=== PATIENT | female | born 1950 | race Caucasian/White ===

== ENCOUNTER 2018-09-28 10:52 | Inpatient (IN) ==
[2018-09-28] MEDS ORDERED: CeFAZolin Syr 2,000MG/20 ML 2,000 MG/20 ML SYRINGE IVPB ONE (11:19)
[2018-09-28] MEDS ORDERED: Ringers Solution, Lactated 1,000 ML IVC SCH (11:30)
--- NOTE | 2018-09-28 12:12 | History & Physical Report ---
Date of Encounter: 09/28/18 Time of Encounter: 12:00 24 Hour HP Update - Instructions Instructions: If the History and Physical is less than 30 days old and was completed prior to A.M. admission and or procedure and has NOT been updated on calendar day of procedure please complete this update prior to performing procedure. - Update Patient reports changes in Medical Condition: No Changes in examination, assessment, or condition: No Changes in Medication: No Preop tests/diagnostics Reviewed: Yes Surgery Remains Indicated: Yes Consent for Planned Operative Procedure(s) Verified: Yes - Pre-Operative Checklist Preoperative Checklist Indicated: Yes Prophylactic Antibiotic Ordered: Yes Home Medications Include Beta Raimundo: No Is VTE Prophylaxis Indicated?: Yes
--- NOTE | 2018-09-28 12:18 | Anesthesia Evaluation PreOp ---
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 Any Significant HX Other Medical History: Diabetes Type II, GERD, Other (depression) Anesthesia History: No Prior Anesthetic Complications, Past Anesthesia Alcohol Use: none Drug use: none Medications and Allergies Atorvastatin Calcium [Lipitor] 80 mg PO HS 08/23/18 [History] Gabapentin [Neurontin] 400 mg PO DAILY 08/23/18 [History] GlipiZIDE XL (24 HR) [Glucotrol XL] 5 mg PO DAILY 08/23/18 [History] Loratadine [Allergy Relief] 10 mg PO DAILY 08/23/18 [History] Metformin HCl [Glucophage Xr] 500 mg PO DAILY 08/23/18 [History] Omeprazole [PriLOSEC] 40 mg PO DAILY 08/23/18 [History] Ranitidine HCl [Zantac] 300 mg PO DAILY 08/23/18 [History] Venlafaxine XR (24 HR) [Effexor XR] 37.5 mg PO DAILY 08/23/18 [History] Allergy/AdvReac Type Severity Reaction Status Date / Time naproxen Allergy See Verified 09/18/18 13:50 Comments morphine AdvReac Nausea Verified 09/18/18 13:50 Procaine [From Novocain] AdvReac See Verified 09/18/18 13:50 Comments - Meds/Allergy Pre-op Review Medications Reviewed: Yes Allergies Reviewed: Yes Beta Blockers on Current Med List: No Anesthesia Results - Labs Laboratory Tests 08/23/18 09/18/18 09/18/18 09:18 13:58 13:58 WBC 6.1 Hgb 13.1 Hct 41.3 Plt Count 243 PT INR Sodium 138 Potassium 4.2 BUN 9 Creatinine 0.81 09/21/18 10:33 WBC Hgb Hct Plt Count PT 12.5 H INR 1.1 Sodium Potassium BUN Creatinine - Imaging EKG: report reviewed (09/18/2018 SINUS RHYTHM LOW QRS VOLTAGE IN PRECORDIAL LEADS) Anesthesia Exam O2 Sat Height 1.68 m Height 1.68 m Height 1.68 m Weight 72.575 kg Weight 72.575 kg Weight 72.575 kg O2 Sat by Pulse Oximetry 93 Vital Signs Temp Pulse Resp BP Pulse Ox 97.8 F 93 18 140/81 93 09/28/18 11:24 09/28/18 11:24 09/28/18 11:24 09/28/18 11:24 09/28/18 11:24 Blood Glucose* 113 Height: 5'6'' Weight: 160 lbs NPO (# of Hours): 8 Pain Scale: 0 Pain Scale Used: Numeric (1 - 10) - HEENT Pupil (Motor): EOMI Mallampati: II Teeth: Edentulous Denture Type: Upper: Complete, Lower: Complete Oral Opening: Greater than 3 - SCHOOL CHILD CARE ATTENDANT LOC: Oriented SCHOOL CHILD CARE ATTENDANT Motor: Normal RUE, Normal LUE, Normal RLE, Normal LLE, Normal Face SCHOOL CHILD CARE ATTENDANT Sensory: Normal: RUE, LUE, Face, Deficit: RLE (neuropathy), LLE (neuropathy) - Cardiac Rhythm: Regular Murmur: None - Pulmonary Breath Sounds: bilateral Clear Respiratory Effort: Symmetrical Anesthesia Assess/Plan ASA Score: 2 Level of consciousness: Cooperative, Oriented, Tranquil Anesthetic Plan: General, Regional Nerve Block Regional Nerve Block Plan: Erector Spinae Monitoring Plan: Standard Monitors Recovery Plan: PACU
[2018-09-28] MEDS ORDERED: ROPIVACAINE HCL/PF 0.5% 30 ML VIAL ONE (12:41)
[2018-09-28] MEDS ORDERED: *HR* FentaNYL (PF) 100 MCG/2 ML VIAL ONE ×3 (12:55→18:03)
[2018-09-28] MEDS ORDERED: *HR* Midazolam HCl 2 MG/2 ML VIAL ONE (12:55)
[2018-09-28] MEDS ORDERED: Neostigmine Methylsulfate 3 MG/3 ML SYRINGE ONE (13:12)
[2018-09-28] MEDS ORDERED: Lidocaine -MPF 2% 2 ML VIAL ONE (13:12)
[2018-09-28] MEDS ORDERED: Dexamethasone 4 MG/ML VIAL ONE (13:12)
[2018-09-28] MEDS ORDERED: Ondansetron 4 MG/2 ML VIAL ONE (13:12)
[2018-09-28] MEDS ORDERED: *HR* Propofol 200 MG/20 ML VIAL IVP ONE (13:12)
[2018-09-28] MEDS ORDERED: *HR* Rocuronium Bromide 50 MG/5 ML VIAL ONE (13:12)
--- NOTE | 2018-09-28 13:24 | Anesthesia Procedures ---
Date of Encounter: 09/28/18 Time of Encounter: 13:00 Procedures: Anesthesia - Nerve Block Procedure Date: 09/28/18 Time: 13:00 Allergies/Adv Reactions: Naproxen, Morphine, Procaine Pre-op Diagnosis: Gastric Mass Surgical Procedure: Resection Gastric Mass Checklist: Correct Patient Identifier, Correct procedure, History checked Monitor Applied: EKG, BP, Pulse Oximetry Supplemental Oxygen via Nasal Cannula (L/min): 2 Sedation: Versed (mg): 2 Sedation: Fentanyl (mcg): 100 Indication: Post Op Analgesia Pre-op Neuro Deficits: No Block Type: Other (Erector Spinae Block *Bilat) Catheter placed: No Sterile Technique: Yes Ultrasound used: Yes Anatomy identified: Yes Visual spread of Local: Yes Neuro Stimulation: No Blood on Needle Aspiration: No Smooth Injection of Local: Yes Pain with Injection of Local: No Prep: Chlorhexadine Needle: 21 x 100 mm Stimuplex Local: Ropivacaine (30mL of 0.5% Ropivacaine with 8mg Decadron bilaterally.) Number of Attempts: 1 Complications: None/effective block Vitals: Vital Signs/O2 Sat/Glucose, Most Recent Temp Pulse Resp BP Pulse Ox 97.8 F 93 17 130/93 100 09/28/18 11:24 09/28/18 13:20 09/28/18 13:20 09/28/18 13:20 09/28/18 13:20 Blood Glucose* 113
[2018-09-28] MEDS ORDERED: CefOXitin 1,000 MG VIAL ONE (14:09)
[2018-09-28] MEDS ORDERED: Albumin Human 5% 25.0 GM/500 ML VIAL ONE (14:13)
[2018-09-28] MEDS ORDERED: *HR* Vasopressin 20 UNIT/ML VIAL ONE (14:13)
[2018-09-28] MEDS ORDERED: *HR* OxyCODONE Immed Rel 5 MG TABLET PO PRN (16:03)
[2018-09-28] MEDS ORDERED: Albuterol 2.5 MG/3 ML NEBULIZER IH PRN (16:03)
[2018-09-28] MEDS ORDERED: *HR* Promethazine 25 MG/ML VIAL IVP PRN (16:03)
[2018-09-28] MEDS ORDERED: *HR* Heparin 5,000 UNIT/ML VIAL SQ SCH (18:00)
--- NOTE | 2018-09-28 18:17 | Operative Note ---
Date of procedure: 09/28/18 Pre-op diagnosis: Gastric mass Post-op diagnosis: same Procedure: Subtotal gastrectomy with Audrey-en-Y reconstruction Anesthesia: YESENIA Surgeon: Jona Salinas Was there an social science research assistant present: No Estimated blood loss (cc): 50 Specimen: Subtotal gastrectomy Condition: stable Disposition: PACU Procedure in Detail: After informed consent the patients taking major operative suite placed in supine position given adequate general endotracheal anesthesia. The abdomen was prepped and draped in sterile fashion utilizing ChloraPrep standard draping techniques. Timeout was taken and the patient is identified. The CAT scan was available in the operating room and a CAT scan images were reviewed with the operating room prior to the procedure. Midline upper abdominal incision was made and the abdomen was entered. There is a large mass involving the midportion of the stomach that was much larger than what appeared on CAT scan. There had been interval growth. 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 I divided the omentum off the transverse colon along its entire length. I divided the tissues between the spleen and the stomach divided the left gastric. I made a complete mobilization of the stomach in the lesser sac. A Fifty Six maneuver was performed. The stomach was totally mobilized. I would estimate the mass between 12 and 15 cm. I felt that I could not preserve any stomach with adequate 5 cm margins in the midportion her distal stomach. I decided to perform a subtotal gastrectomy with wide proximal margins. I marked an area 6 cm above the tumor on a cardia and lesser curvature the stomach. I did not feel that there was any poor that I could julio a margin in the antrum. I identified the pylorus is an area of division. The pylorus was completely mobilized with I could divide through the duodenal bulb. I divided the proximal stomach with KENDRICK and the duodenal bulb with KENDRICK and the stomach was completely removed. I decided on a handsewn Audrey-en-Y reconstruction. The small bowel was divided about 20 cm distal to the ligament of Treitz. I made a small division in the mesentery to allow for adequate mobilization of the jejunum for the Audrey limb. Audrey limb was brought through the transverse mesocolon and the visible window of tissue on the left side of the middle colic artery and vein. I performed a handsewn anastomosis using 2-0 silk seromuscular and running 3-0 chromic mucosal stitches to completely anastomosis. This gave an excellent technical result. The staple line along the stomach was reinforced with interrupted seromuscular stitches imbricating the staple line. I used 3 silk stitches to imbricate the staple line on the duodenal stump. The stomach was sewn to the transverse music colon at the opening placing the anastomosis at the transverse mesocolon. This gave an excellent technical result and complete closure of the opening in the transverse mesentery. The pancreaticoduodenal limb was then brought into approximation to the side of the jejunum. An end to side anastomosis was performed a handsewn. 2-0 silk seromuscular stitches were used as well as 3-0 chromic mucosal closure. This gave an excellent technical result. The abdomen was irrigated with copious amounts of antibiotic containing solution. The nasogastric tube was positioned just above the suture line. There is no evidence of bleeding or leak. Midline was closed with looped 0 PDS. Skin was closed with interrupted Vicryl and skin clips.
[2018-09-28] MEDS: *HR* HYDROmorphone (PF) 1 MG/ML SYRINGE IVP PRN ×2 (18:40→18:46)
--- NOTE | 2018-09-28 18:59 | Anesthesia Evaluation Post Op ---
Date of Encounter: 09/28/18 Time of Encounter: 18:57 - Vital Signs Vital Signs: Vital Signs/O2 Sat, Most Current Temp Pulse Resp BP Pulse Ox 98.3 F 92 18 142/87 95 09/28/18 18:51 09/28/18 18:51 09/28/18 18:51 09/28/18 18:51 09/28/18 18:51 - Lungs Lungs: Clear Ascult./Percussion - Airway Airway: Non-obstructed - Cardiovascular Regular Rate, Baseline Rhythm - Mental Status Mental Status: Confused - Pain Pain Scale: 5 Pain Scale used: Numeric (1 - 10) - Nausea Vomiting Nausea Vomiting: Not Present - Hydration Hydration: NPO, Has not voided - Discharge PostOp Status: Transfer Patient to floor
[2018-09-28] MEDS ORDERED: *HR* Metoprolol 5 MG/5 ML VIAL IVP PRN (20:33)
[2018-09-28] MEDS ORDERED: *HR* Dextrose 50 % in Water (Syg) 50 ML SYRINGE IVP PRN (20:33)
[2018-09-28] MEDS ORDERED: Ondansetron 4 MG/2 ML VIAL IVP PRN (20:33)
[2018-09-28] MEDS ORDERED: Dextrose Gel 15 GM/37.5 ML TUBE PO PRN ×2 (20:33)
[2018-09-28] MEDS ORDERED: *HR* Morphine 2 MG/ML SYRINGE IVP PRN (20:33)
[2018-09-28] MEDS ORDERED: D5% in Water 1,000 ML IVC PRN (20:33)
[2018-09-28] MEDS ORDERED: OXYCODONE Oral CONC 10 MG/0.5 ML ORAL.SYG SL PRN ×2 (21:26)
[2018-09-28] MEDS: OXYCODONE Oral CONC 10 MG/0.5 ML ORAL.SYG SL PRN (22:00)
[2018-09-28] MEDS: 0.9 % Sodium Chloride 1,000 ML IVC SCH (22:38)
[2018-09-29] MEDS: Acetaminophen IV 1,000 MG/100 ML INFUS..BTL IVPB SCH ×5 (00:21→23:54)
[2018-09-29] MEDS: Insulin LISPRO 300 UNITS/3 ML VIAL SQ SCH ×4 (01:11→18:14)
[2018-09-29] MEDS: OXYCODONE Oral CONC 10 MG/0.5 ML ORAL.SYG SL PRN ×2 (02:31→08:32)
[2018-09-29 04:22] LABS: Basophils % 0.1 %; Hemoglobin 11.5 g/dL (11.5-15.4); Immature Granulocytes % 0.2 % (0-4); Lymphocytes # 0.9 K/mcL (0.6-4.6); Lymphocytes % 10.8 %; Mean Corpuscular HGB Conc 31.9 g/dL (31.6-35.5); Mean Corpuscular Hemoglobin 28.3 pg (28.0-33.3); Mean Corpuscular Volume 88.7 fL (83.0-100.0); Mean Platelet Volume 9.9 fL (9.4-12.4); Monocytes # 0.7 K/mcL (0.0-1.3); Monocytes % 8.9 %; Neutrophils # 6.7 K/mcL (1.6-8.9); Platelet Count 219 K/mcL (140-400); Red Blood Count 4.06 M/mcL (3.82-4.97); Red Cell Distribution Width 12.7 % (11.5-14.5)
[2018-09-29 04:43] LABS: BUN/Creatinine Ratio 16 (6-26); Blood Urea Nitrogen 12 mg/dL (8-23); Calcium 8.9 mg/dL (8.6-10.3); Carbon Dioxide 23 mEq/L (23-29); Chloride 101 mEq/L (98-107); Glucose 216 mg/dL (70-105); Osmolality,Calculated 284 (280-300); Potassium 3.7 mEq/L (3.5-5.1); Sodium 134 mEq/L (136-145); eGFR For Non-African Americans > 60 (> 60)
[2018-09-29] MEDS: *HR* Heparin 5,000 UNIT/ML VIAL SQ SCH ×2 (05:37→18:09)
[2018-09-29] MEDS: Pantoprazole 40 MG VIAL IVP SCH (09:18)
--- NOTE | 2018-09-29 11:17 | General Surgery Progress Note ---
<Graham Mancini S - Last Filed: 09/29/18 17:05> Date of Encounter: 09/29/18 Time of Encounter: 08:00 - Assessment and Plan (1) Gastric mass Current Visit: Yes Status: Acute Patient is POD 1 for subtotal gastrectomy with Audrey-en-Y for gastric mass NGT has less than 50 ml dark output Keep NPO for now IVF hydration at 75 ml/hr Morphine and oxycodone for pain Zofran for nausea Protonix for GI prophylaxis Awaiting path results (2) Hyperglycemia Current Visit: Yes Status: Acute Glucose 216 Medium dose sliding scale insulin Subjective Patient reports: no new complaints, still having pain, flatus, no bowel movement Narrative: Patient is POD 1 for subtotal gastrectomy with Audrey-en-Y. She is NPO. She is s till complaining of abdominal pain. She admits to passing flatus. She denies nausea, vomiting, BMs, CP, SOB, fevers/chills. Objective Vital Signs - Last 8 Hours Temp Pulse Resp BP Pulse Ox 09/29/18 09:58 98.4 F 89 16 136/71 99 09/29/18 07:01 98.6 F 97 16 133/74 96 09/29/18 04:32 98.7 F 101 15 146/79 96 Intake and Output 09/28/18 09/29/18 09/29/18 23:59 07:59 15:59 Intake Total 200 / 200 200 / 200 Output Total 50 / 50 0 / 0 300 / 300 Balance -50 / -50 200 / 200 -100 / -100 Intake: IV Fluids 200 / 200 200 / 200 Ofirmev 1,000 mg/100 ml 1,000 100 / 100 100 / 100 mg In 100 ml @ 400 mls/hr IVPB Q6HR [facility] Rx#:[id number] Ancef 2,000 MG In 0.9 % Sodium 100 / 100 100 / 100 Chloride 100 ML @ 200 mls/hr IVPB Q8HR [facility] Rx#:[id number] Oral 0 / 0 0 / 0 Output: Urine 0 / 0 300 / 300 Estimated Blood Loss 50 / 50 Other: Meal Breakfast NPO Percent of Meal Consumed 0% # Voids 1 # Bowel Movements 0 Blood Glucose* 242 180 182 - General physical appearance well developed - Respiratory normal expansion, normal respiratory effort - Cardiovascular Cardiovascular exam: Present: RRR - Abdomen Abdomen: Present: bowel sounds present, soft, tender (appropriately over incision site) - Incision Incision: Present: clean and dry, intact - Integumentary no rash - Psychiatric oriented to time, oriented to person, oriented to place - Labs 09/29/18 04:01 09/29/18 04:01 Diabetes panel 09/29/18 Range/Units 04:01 Sodium 134 L (136-145) mEq/L Potassium 3.7 (3.5-5.1) mEq/L Chloride 101 (98-107) mEq/L Carbon Dioxide 23 (23-29) mEq/L BUN 12 (8-23) mg/dL Creatinine 0.77 (0.60-1.20) mg/dL Glucose 216 H (70-105) mg/dL Calcium 8.9 (8.6-10.3) mg/dL Calcium panel 09/29/18 Range/Units 04:01 Calcium 8.9 (8.6-10.3) mg/dL Pituitary panel 09/29/18 Range/Units 04:01 Sodium 134 L (136-145) mEq/L Potassium 3.7 (3.5-5.1) mEq/L Chloride 101 (98-107) mEq/L Carbon Dioxide 23 (23-29) mEq/L BUN 12 (8-23) mg/dL Creatinine 0.77 (0.60-1.20) mg/dL Glucose 216 H (70-105) mg/dL Calcium 8.9 (8.6-10.3) mg/dL Adrenal panel 09/29/18 Range/Units 04:01 Sodium 134 L (136-145) mEq/L Potassium 3.7 (3.5-5.1) mEq/L Chloride 101 (98-107) mEq/L Carbon Dioxide 23 (23-29) mEq/L BUN 12 (8-23) mg/dL Creatinine 0.77 (0.60-1.20) mg/dL Glucose 216 H (70-105) mg/dL Calcium 8.9 (8.6-10.3) mg/dL Consult Discharge Plan - Plan Referrals: Jona Salinas MD [Partnered Physician] - 10/10/18 1:15 pm Isaac Rodriguez MD [Primary Care Provider] - <Jona Salinas - Last Filed: 09/30/18 10:36> Date of Encounter: 09/29/18 Objective Vital Signs - Last 8 Hours Temp Pulse Resp BP Pulse Ox 09/30/18 06:56 98.5 F 81 14 156/75 94 09/30/18 05:10 98.9 F 92 15 164/78 96 Intake and Output 09/29/18 09/30/18 09/30/18 23:59 07:59 15:59 Intake Total 100 / 100 1200 / 1200 Output Total 200 / 200 1350 / 1350 20 / 20 Balance -100 / -100 -150 / -150 -20 / -20 Intake: IV Fluids 100 / 100 1200 / 1200 0.9 % Sodium Chloride 1,000 ML 1000 / 1000 @ 75 mls/hr IVC .[id number] [facility] Rx #:[id number] Ofirmev 1,000 mg/100 ml 1,000 100 / 100 200 / 200 mg In 100 ml @ 400 mls/hr IVPB Q6HR [facility] Rx#:[id number] Oral 0 / 0 Output: Urine 0 / 0 0 / 0 Gastric Tube Lavage Amount 20 / 20 Left Nare 20 / 20 Catheter 200 / 200 1100 / 1100 Gastric Drainage 250 / 250 Other: Meal NPO DINNER Weight 73.5 kg Blood Glucose* 146 136 Patient Weight 09/30/18 23:59 Weight 73.5 kg - Labs 09/30/18 03:48 09/30/18 03:48 Diabetes panel 09/30/18 Range/Units 03:48 Sodium 138 (136-145) mEq/L Potassium 3.7 (3.5-5.1) mEq/L Chloride 105 (98-107) mEq/L Carbon Dioxide 26 (23-29) mEq/L BUN 10 (8-23) mg/dL Creatinine 0.56 L (0.60-1.20) mg/dL Glucose 150 H (70-105) mg/dL Calcium 9.1 (8.6-10.3) mg/dL Calcium panel 09/30/18 Range/Units 03:48 Calcium 9.1 (8.6-10.3) mg/dL Pituitary panel 09/30/18 Range/Units 03:48 Sodium 138 (136-145) mEq/L Potassium 3.7 (3.5-5.1) mEq/L Chloride 105 (98-107) mEq/L Carbon Dioxide 26 (23-29) mEq/L BUN 10 (8-23) mg/dL Creatinine 0.56 L (0.60-1.20) mg/dL Glucose 150 H (70-105) mg/dL Calcium 9.1 (8.6-10.3) mg/dL Adrenal panel 09/30/18 Range/Units 03:48 Sodium 138 (136-145) mEq/L Potassium 3.7 (3.5-5.1) mEq/L Chloride 105 (98-107) mEq/L Carbon Dioxide 26 (23-29) mEq/L BUN 10 (8-23) mg/dL Creatinine 0.56 L (0.60-1.20) mg/dL Glucose 150 H (70-105) mg/dL Calcium 9.1 (8.6-10.3) mg/dL - Attending Attestation I examined this patient and my medical decision-making was reviewed with the Resident Physician. I agree with the documented findings, disposition and treatment plan as described except to the extent set forth below. The patient is seen and evaluated with resident. She is postoperative day 1 from subtotal gastrectomy with Audrey-en-Y reconstruction. Blood cell count and hemoglobin are normal she is in excellent pain control. Continue supportive care and nasogastric tube drainage Jona Salinas MD FACS
[2018-09-29] MEDS: 0.9 % Sodium Chloride 1,000 ML IVC SCH (12:01)
[2018-09-29] MEDS ORDERED: Ketorolac 15 MG/ML VIAL IVP ONE (17:07)
[2018-09-29] MEDS: Ketorolac 15 MG/ML VIAL IVP SCH (23:44)
[2018-09-30] MEDS: Insulin LISPRO 300 UNITS/3 ML VIAL SQ SCH ×5 (00:17→23:27)
[2018-09-30] MEDS: 0.9 % Sodium Chloride 1,000 ML IVC SCH ×2 (01:13→13:54)
[2018-09-30 04:09] LABS: Basophils % 0.1 %; Hematocrit 35.5 % (35.3-44.9); Hemoglobin 11.5 g/dL (11.5-15.4); Immature Granulocytes % 0.2 % (0-4); Lymphocytes # 1.7 K/mcL (0.6-4.6); Lymphocytes % 17.5 %; Mean Corpuscular HGB Conc 32.4 g/dL (31.6-35.5); Mean Corpuscular Hemoglobin 28.6 pg (28.0-33.3); Mean Corpuscular Volume 88.3 fL (83.0-100.0); Mean Platelet Volume 9.6 fL (9.4-12.4); Monocytes # 0.7 K/mcL (0.0-1.3); Monocytes % 7.6 %; Neutrophils # 7.2 K/mcL (1.6-8.9); Platelet Count 217 K/mcL (140-400); Red Blood Count 4.02 M/mcL (3.82-4.97); Segmented Neutrophils % 74.6 %
[2018-09-30 04:34] LABS: BUN/Creatinine Ratio 18 (6-26); Blood Urea Nitrogen 10 mg/dL (8-23); Calcium 9.1 mg/dL (8.6-10.3); Carbon Dioxide 26 mEq/L (23-29); Chloride 105 mEq/L (98-107); Glucose 150 mg/dL (70-105); Osmolality,Calculated 288 (280-300); Potassium 3.7 mEq/L (3.5-5.1); Sodium 138 mEq/L (136-145); eGFR For Non-African Americans > 60 (> 60)
[2018-09-30] MEDS: Acetaminophen IV 1,000 MG/100 ML INFUS..BTL IVPB SCH ×4 (06:05→23:28)
[2018-09-30] MEDS: *HR* Heparin 5,000 UNIT/ML VIAL SQ SCH ×2 (06:12→18:08)
[2018-09-30] MEDS: Ketorolac 15 MG/ML VIAL IVP SCH ×4 (06:13→23:29)
[2018-09-30] MEDS: Pantoprazole 40 MG VIAL IVP SCH (09:08)
[2018-10-01] MEDS: 0.9 % Sodium Chloride 1,000 ML IVC SCH ×2 (02:52→16:31)
[2018-10-01 04:39] LABS: Basophils % 0.4 %; Eosinophils # 0.1 K/mcL (0.0-0.6); Eosinophils % 0.8 %; Hematocrit 35.1 % (35.3-44.9); Hemoglobin 11.5 g/dL (11.5-15.4); Immature Granulocytes % 0.2 % (0-4); Lymphocytes # 1.7 K/mcL (0.6-4.6); Mean Corpuscular HGB Conc 32.8 g/dL (31.6-35.5); Mean Corpuscular Hemoglobin 29.3 pg (28.0-33.3); Mean Corpuscular Volume 89.3 fL (83.0-100.0); Mean Platelet Volume 9.7 fL (9.4-12.4); Monocytes # 0.8 K/mcL (0.0-1.3); Monocytes % 9.4 %; Neutrophils # 5.8 K/mcL (1.6-8.9); Platelet Count 223 K/mcL (140-400); Red Blood Count 3.93 M/mcL (3.82-4.97); Red Cell Distribution Width 12.9 % (11.5-14.5); Segmented Neutrophils % 69.2 %
[2018-10-01 04:59] LABS: BUN/Creatinine Ratio 20 (6-26); Blood Urea Nitrogen 11 mg/dL (8-23); Calcium 8.8 mg/dL (8.6-10.3); Carbon Dioxide 26 mEq/L (23-29); Chloride 103 mEq/L (98-107); Glucose 112 mg/dL (70-105); Osmolality,Calculated 288 (280-300); Potassium 3.4 mEq/L (3.5-5.1); Sodium 139 mEq/L (136-145); eGFR For Non-African Americans > 60 (> 60)
[2018-10-01] MEDS: Acetaminophen IV 1,000 MG/100 ML INFUS..BTL IVPB SCH ×3 (06:49→18:29)
[2018-10-01] MEDS: *HR* Heparin 5,000 UNIT/ML VIAL SQ SCH ×2 (06:50→18:28)
[2018-10-01] MEDS: Insulin LISPRO 300 UNITS/3 ML VIAL SQ SCH ×3 (06:51→18:29)
[2018-10-01] MEDS: Ketorolac 15 MG/ML VIAL IVP SCH ×3 (06:51→18:29)
[2018-10-01] MEDS: Pantoprazole 40 MG VIAL IVP SCH (08:51)
[2018-10-01] MEDS ORDERED: Chloraseptic Spray 177 ML BOTTLE MM PRN (08:58)
--- NOTE | 2018-10-01 16:44 | General Surgery Progress Note ---
<Graham Mancini S - Last Filed: 10/01/18 16:40> Date of Encounter: 10/01/18 Time of Encounter: 09:20 - Assessment and Plan (1) Gastric mass Current Visit: Yes Status: Acute Patient is POD 3 for subtotal gastrectomy with Audrey-en-Y for gastric mass NGT has less than 50 ml dark frothy output, patient complains of painful swallowing - ordered chloraseptic throat spray No BMs or flatus Continue NGT for now Patient NPO IVF hydration at 75 ml/hr Morphine and oxycodone for pain Zofran for nausea Protonix for GI prophylaxis Patient up out of bed to chair today Awaiting path results (2) Hyperglycemia Current Visit: Yes Status: Acute Glucose 100 Medium dose sliding scale insulin Subjective Patient reports: no new complaints, feels better, pain is less, no flatus, no bowel movement Narrative: Patient is s/p subtotal gastrectomy with Audrey-en-Y (09/28) for gastric mass. She denies nausea, vomiting, SOB, CP, fevers/chills. She admits to mild abdominal pain which is improving and painful swallowing. Objective Vital Signs - Last 8 Hours Temp Pulse Resp BP Pulse Ox 10/01/18 11:30 98.3 F 77 14 158/78 97 Intake and Output 10/01/18 10/01/18 10/01/18 07:59 15:59 23:59 Intake Total 100 / 100 1000 / 1000 Output Total 650 / 650 Balance -550 / -550 1000 / 1000 Intake: IV Fluids 100 / 100 1000 / 1000 0.9 % Sodium Chloride 1,000 ML 1000 / 1000 @ 75 mls/hr IVC .[id number] [facility] Rx #:[id number] Ofirmev 1,000 mg/100 ml 1,000 100 / 100 mg In 100 ml @ 400 mls/hr IVPB Q6HR [facility] Rx#:[id number] Oral 0 / 0 Output: Gastric Tube Lavage Amount 0 / 0 Left Nare 0 / 0 Catheter 600 / 600 Gastric Drainage 50 / 50 Other: Meal npo Weight 80 kg Blood Glucose* 100 Patient Weight 10/01/18 22:59 Weight 80 kg - General physical appearance well developed, well nourished - Respiratory normal expansion, normal respiratory effort - Cardiovascular Cardiovascular exam: Present: RRR - Abdomen Abdomen: Present: bowel sounds present (faint), soft, tender (appropriately) - Incision Incision: Present: clean and dry, intact - Integumentary no rash - Psychiatric oriented to time, oriented to person, oriented to place - Labs 10/01/18 03:43 10/01/18 03:43 Diabetes panel 10/01/18 Range/Units 03:43 Sodium 139 (136-145) mEq/L Potassium 3.4 L (3.5-5.1) mEq/L Chloride 103 (98-107) mEq/L Carbon Dioxide 26 (23-29) mEq/L BUN 11 (8-23) mg/dL Creatinine 0.55 L (0.60-1.20) mg/dL Glucose 112 H (70-105) mg/dL Calcium 8.8 (8.6-10.3) mg/dL Calcium panel 10/01/18 Range/Units 03:43 Calcium 8.8 (8.6-10.3) mg/dL Pituitary panel 10/01/18 Range/Units 03:43 Sodium 139 (136-145) mEq/L Potassium 3.4 L (3.5-5.1) mEq/L Chloride 103 (98-107) mEq/L Carbon Dioxide 26 (23-29) mEq/L BUN 11 (8-23) mg/dL Creatinine 0.55 L (0.60-1.20) mg/dL Glucose 112 H (70-105) mg/dL Calcium 8.8 (8.6-10.3) mg/dL Adrenal panel 10/01/18 Range/Units 03:43 Sodium 139 (136-145) mEq/L Potassium 3.4 L (3.5-5.1) mEq/L Chloride 103 (98-107) mEq/L Carbon Dioxide 26 (23-29) mEq/L BUN 11 (8-23) mg/dL Creatinine 0.55 L (0.60-1.20) mg/dL Glucose 112 H (70-105) mg/dL Calcium 8.8 (8.6-10.3) mg/dL Consult Discharge Plan - Plan Referrals: Jona Salinas MD [Partnered Physician] - 10/10/18 1:15 pm Isaac Rodriguez MD [Primary Care Provider] - <Jona Salinas - Last Filed: 10/01/18 19:16> Date of Encounter: 10/01/18 Objective Vital Signs - Last 8 Hours Temp Pulse Resp BP Pulse Ox 10/01/18 18:19 98.7 F 93 15 164/78 95 10/01/18 11:30 98.3 F 77 14 158/78 97 Intake and Output 10/01/18 10/01/18 10/01/18 07:59 15:59 23:59 Intake Total 100 / 100 1100 / 1100 Output Total 650 / 650 0 / 0 Balance -550 / -550 1100 / 1100 Intake: IV Fluids 100 / 100 1100 / 1100 0.9 % Sodium Chloride 1,000 ML 1000 / 1000 @ 75 mls/hr IVC .[id number] [facility] Rx #:[id number] Ofirmev 1,000 mg/100 ml 1,000 100 / 100 100 / 100 mg In 100 ml @ 400 mls/hr IVPB Q6HR [facility] Rx#:[id number] Oral 0 / 0 0 / 0 Output: Gastric Tube Lavage Amount 0 / 0 0 / 0 Left Nare 0 / 0 0 / 0 Catheter 600 / 600 Gastric Drainage 50 / 50 Other: Meal npo Weight 80 kg Blood Glucose* 100 99 Patient Weight 10/01/18 22:59 Weight 80 kg - Labs 10/01/18 03:43 10/01/18 03:43 Diabetes panel 10/01/18 Range/Units 03:43 Sodium 139 (136-145) mEq/L Potassium 3.4 L (3.5-5.1) mEq/L Chloride 103 (98-107) mEq/L Carbon Dioxide 26 (23-29) mEq/L BUN 11 (8-23) mg/dL Creatinine 0.55 L (0.60-1.20) mg/dL Glucose 112 H (70-105) mg/dL Calcium 8.8 (8.6-10.3) mg/dL Calcium panel 10/01/18 Range/Units 03:43 Calcium 8.8 (8.6-10.3) mg/dL Pituitary panel 10/01/18 Range/Units 03:43 Sodium 139 (136-145) mEq/L Potassium 3.4 L (3.5-5.1) mEq/L Chloride 103 (98-107) mEq/L Carbon Dioxide 26 (23-29) mEq/L BUN 11 (8-23) mg/dL Creatinine 0.55 L (0.60-1.20) mg/dL Glucose 112 H (70-105) mg/dL Calcium 8.8 (8.6-10.3) mg/dL Adrenal panel 10/01/18 Range/Units 03:43 Sodium 139 (136-145) mEq/L Potassium 3.4 L (3.5-5.1) mEq/L Chloride 103 (98-107) mEq/L Carbon Dioxide 26 (23-29) mEq/L BUN 11 (8-23) mg/dL Creatinine 0.55 L (0.60-1.20) mg/dL Glucose 112 H (70-105) mg/dL Calcium 8.8 (8.6-10.3) mg/dL - Attending Attestation I examined this patient and my medical decision-making was reviewed with the Resident Physician. I agree with the documented findings, disposition and treatment plan as described except to the extent set forth below. The patient is seen and evaluated with rest and on morning rounds. The nasogastric tube drainage has picked up somewhat. There was bile tinged fluid that is somewhat brown in the nasogastric tube container. Her white blood cell count is normal. Overall I am very pleased with her clinical course. Continue supportive care and nasogastric tube drainage. Jona Salinas MD FACS
[2018-10-02] MEDS: Insulin LISPRO 300 UNITS/3 ML VIAL SQ SCH ×3 (00:43→16:54)
[2018-10-02] MEDS: Ketorolac 15 MG/ML VIAL IVP SCH ×4 (00:50→16:53)
[2018-10-02] MEDS: Acetaminophen IV 1,000 MG/100 ML INFUS..BTL IVPB SCH ×4 (00:50→16:52)
[2018-10-02] MEDS: 0.9 % Sodium Chloride 1,000 ML IVC SCH ×2 (04:22→16:54)
[2018-10-02 05:55] LABS: Basophils % 0.4 %; Eosinophils # 0.1 K/mcL (0.0-0.6); Eosinophils % 1.9 %; Hematocrit 34.6 % (35.3-44.9); Hemoglobin 11.2 g/dL (11.5-15.4); Immature Granulocytes % 0.4 % (0-4); Lymphocytes # 1.6 K/mcL (0.6-4.6); Lymphocytes % 23.7 %; Mean Corpuscular HGB Conc 32.4 g/dL (31.6-35.5); Mean Corpuscular Hemoglobin 28.7 pg (28.0-33.3); Mean Corpuscular Volume 88.7 fL (83.0-100.0); Mean Platelet Volume 9.6 fL (9.4-12.4); Monocytes # 0.6 K/mcL (0.0-1.3); Monocytes % 8.5 %; Neutrophils # 4.5 K/mcL (1.6-8.9); Platelet Count 238 K/mcL (140-400); Red Cell Distribution Width 12.6 % (11.5-14.5); Segmented Neutrophils % 65.1 %
[2018-10-02] MEDS: *HR* Heparin 5,000 UNIT/ML VIAL SQ SCH ×2 (05:58→16:53)
[2018-10-02 06:12] LABS: BUN/Creatinine Ratio 25 (6-26); Blood Urea Nitrogen 13 mg/dL (8-23); Carbon Dioxide 24 mEq/L (23-29); Chloride 105 mEq/L (98-107); Glucose 105 mg/dL (70-105); Osmolality,Calculated 288 (280-300); Potassium 3.3 mEq/L (3.5-5.1); Sodium 139 mEq/L (136-145); eGFR For Non-African Americans > 60 (> 60)
[2018-10-02] MEDS: Pantoprazole 40 MG VIAL IVP SCH (08:34)
--- NOTE | 2018-10-02 09:49 | General Surgery Progress Note ---
<Graham Mancini - Last Filed: 10/02/18 09:46> Date of Encounter: 10/02/18 Time of Encounter: 09:00 - Assessment and Plan (1) Gastric mass Current Visit: Yes Status: Acute Patient is POD 4 for subtotal gastrectomy with Audrey-en-Y for gastric mass NGT pulled this AM Passing flatus, no BMs Started CLD with volume restriction of 300 ml per shift IVF hydration at 75 ml/hr Morphine and oxycodone for pain Zofran for nausea Protonix for GI prophylaxis Patient up out of bed to chair today Awaiting path results (2) Hyperglycemia Current Visit: Yes Status: Acute Glucose 93 Decreased to low sliding scale insulin (3) Hypokalemia Current Visit: Yes Status: Acute K 3.4 > 3.3 today Replaced with 20 meq KCL rider Continue to monitor Subjective Patient reports: no new complaints, feels better, pain is less, flatus, no bowel movement, afebrile Narrative: Patient doing well this morning. She states her pain continues to improve. She passed flatus this AM. She denies nausea, vomiting, BMs, CP, SOB, fevers/chills. Objective Vital Signs - Last 8 Hours Temp Pulse Resp BP Pulse Ox 10/02/18 07:01 97.4 F L 74 15 158/78 95 10/02/18 03:56 97.7 F 79 15 157/78 94 10/02/18 03:06 154/74 Intake and Output 10/01/18 10/02/18 10/02/18 23:59 07:59 15:59 Intake Total 1100 / 1100 1200 / 1200 Output Total 0 / 0 950 / 950 200 / 200 Balance 1100 / 1100 250 / 250 -200 / -200 Intake: IV Fluids 1100 / 1100 1200 / 1200 0.9 % Sodium Chloride 1,000 ML 1000 / 1000 1000 / 1000 @ 75 mls/hr IVC .[id number] [facility] Rx #:[id number] Ofirmev 1,000 mg/100 ml 1,000 100 / 100 200 / 200 mg In 100 ml @ 400 mls/hr IVPB Q6HR [facility] Rx#:[id number] Oral 0 / 0 0 / 0 Output: Urine 0 / 0 200 / 200 Gastric Tube Lavage Amount 0 / 0 Left Nare 0 / 0 Catheter 650 / 650 Gastric Drainage 300 / 300 Other: # Bowel Movements 0 Weight 78.9 kg Blood Glucose* 99 93 Patient Weight 10/02/18 23:59 Weight 78.9 kg - General physical appearance well developed, well nourished - Respiratory normal expansion, normal respiratory effort - Cardiovascular Cardiovascular exam: Present: RRR - Abdomen Abdomen: Present: bowel sounds present (faint), soft, tender (appropriately) - Incision Incision: Present: clean and dry, intact - Integumentary no rash - Psychiatric oriented to time, oriented to person, oriented to place - Labs 10/02/18 04:55 10/02/18 04:55 Diabetes panel 10/02/18 Range/Units 04:55 Sodium 139 (136-145) mEq/L Potassium 3.3 L (3.5-5.1) mEq/L Chloride 105 (98-107) mEq/L Carbon Dioxide 24 (23-29) mEq/L BUN 13 (8-23) mg/dL Creatinine 0.52 L (0.60-1.20) mg/dL Glucose 105 (70-105) mg/dL Calcium 9.0 (8.6-10.3) mg/dL Calcium panel 10/02/18 Range/Units 04:55 Calcium 9.0 (8.6-10.3) mg/dL Pituitary panel 10/02/18 Range/Units 04:55 Sodium 139 (136-145) mEq/L Potassium 3.3 L (3.5-5.1) mEq/L Chloride 105 (98-107) mEq/L Carbon Dioxide 24 (23-29) mEq/L BUN 13 (8-23) mg/dL Creatinine 0.52 L (0.60-1.20) mg/dL Glucose 105 (70-105) mg/dL Calcium 9.0 (8.6-10.3) mg/dL Adrenal panel 10/02/18 Range/Units 04:55 Sodium 139 (136-145) mEq/L Potassium 3.3 L (3.5-5.1) mEq/L Chloride 105 (98-107) mEq/L Carbon Dioxide 24 (23-29) mEq/L BUN 13 (8-23) mg/dL Creatinine 0.52 L (0.60-1.20) mg/dL Glucose 105 (70-105) mg/dL Calcium 9.0 (8.6-10.3) mg/dL Consult Discharge Plan - Plan Referrals: Jona Salinas MD [Partnered Physician] - 10/10/18 1:15 pm Isaac Rodriguez MD [Primary Care Provider] - <Jona Salinas - Last Filed: 10/02/18 13:30> Date of Encounter: 10/02/18 Objective Vital Signs - Last 8 Hours Temp Pulse Resp BP Pulse Ox 10/02/18 10:05 97.5 F L 89 18 130/73 95 10/02/18 07:01 97.4 F L 74 15 158/78 95 Intake and Output 10/01/18 10/02/18 10/02/18 23:59 07:59 15:59 Intake Total 1100 / 1100 1200 / 1200 360 / 360 Output Total 0 / 0 950 / 950 200 / 200 Balance 1100 / 1100 250 / 250 160 / 160 Intake: IV Fluids 1100 / 1100 1200 / 1200 0.9 % Sodium Chloride 1,000 ML 1000 / 1000 1000 / 1000 @ 75 mls/hr IVC .[id number] [facility] Rx #:[id number] Ofirmev 1,000 mg/100 ml 1,000 100 / 100 200 / 200 mg In 100 ml @ 400 mls/hr IVPB Q6HR [facility] Rx#:[id number] Oral 0 / 0 0 / 0 360 / 360 Output: Urine 0 / 0 200 / 200 Gastric Tube Lavage Amount 0 / 0 Left Nare 0 / 0 Catheter 650 / 650 Gastric Drainage 300 / 300 Other: Meal Breakfast # Bowel Movements 0 Weight 78.9 kg Blood Glucose* 99 93 281 Patient Weight 10/02/18 23:59 Weight 78.9 kg - Labs 10/02/18 04:55 10/02/18 04:55 Diabetes panel 10/02/18 Range/Units 04:55 Sodium 139 (136-145) mEq/L Potassium 3.3 L (3.5-5.1) mEq/L Chloride 105 (98-107) mEq/L Carbon Dioxide 24 (23-29) mEq/L BUN 13 (8-23) mg/dL Creatinine 0.52 L (0.60-1.20) mg/dL Glucose 105 (70-105) mg/dL Calcium 9.0 (8.6-10.3) mg/dL Calcium panel 10/02/18 Range/Units 04:55 Calcium 9.0 (8.6-10.3) mg/dL Pituitary panel 10/02/18 Range/Units 04:55 Sodium 139 (136-145) mEq/L Potassium 3.3 L (3.5-5.1) mEq/L Chloride 105 (98-107) mEq/L Carbon Dioxide 24 (23-29) mEq/L BUN 13 (8-23) mg/dL Creatinine 0.52 L (0.60-1.20) mg/dL Glucose 105 (70-105) mg/dL Calcium 9.0 (8.6-10.3) mg/dL Adrenal panel 10/02/18 Range/Units 04:55 Sodium 139 (136-145) mEq/L Potassium 3.3 L (3.5-5.1) mEq/L Chloride 105 (98-107) mEq/L Carbon Dioxide 24 (23-29) mEq/L BUN 13 (8-23) mg/dL Creatinine 0.52 L (0.60-1.20) mg/dL Glucose 105 (70-105) mg/dL Calcium 9.0 (8.6-10.3) mg/dL - Attending Attestation I examined this patient and my medical decision-making was reviewed with the Resident Physician. I agree with the documented findings, disposition and treatment plan as described except to the extent set forth below. The patient is seen and evaluated on morning rounds with resident. Nasogastric tube drainage has fallen off to 0. She has bowel sounds and is passing flatus. Plan to discontinue the nasogastric tube inserted 300 mL per shift of clear liqu ids Jona Salinas MD FACS
[2018-10-02] MEDS ORDERED: Insulin LISPRO 300 UNITS/3 ML VIAL SQ SCH (09:59)
[2018-10-02] MEDS ORDERED: Potassium Chloride 20 MEQ, Lidocaine 1% 2 ML in D5% in Water 250 ML IVPB ONE (10:01)
[2018-10-03] MEDS: Acetaminophen IV 1,000 MG/100 ML INFUS..BTL IVPB SCH ×5 (01:20→23:46)
[2018-10-03] MEDS: Ketorolac 15 MG/ML VIAL IVP SCH ×5 (01:21→23:44)
[2018-10-03] MEDS: *HR* Heparin 5,000 UNIT/ML VIAL SQ SCH ×2 (06:08→18:19)
[2018-10-03 06:42] LABS: Basophils % 0.6 %; Eosinophils # 0.2 K/mcL (0.0-0.6); Hematocrit 30.5 % (35.3-44.9); Hemoglobin 10.1 g/dL (11.5-15.4); Immature Granulocytes % 0.2 % (0-4); Lymphocytes # 1.4 K/mcL (0.6-4.6); Lymphocytes % 26.4 %; Mean Corpuscular HGB Conc 33.1 g/dL (31.6-35.5); Mean Corpuscular Hemoglobin 29.1 pg (28.0-33.3); Mean Corpuscular Volume 87.9 fL (83.0-100.0); Mean Platelet Volume 9.3 fL (9.4-12.4); Monocytes # 0.5 K/mcL (0.0-1.3); Monocytes % 10.2 %; Neutrophils # 3.1 K/mcL (1.6-8.9); Platelet Count 223 K/mcL (140-400); Red Blood Count 3.47 M/mcL (3.82-4.97); Red Cell Distribution Width 12.6 % (11.5-14.5); Segmented Neutrophils % 58.6 %
[2018-10-03 06:57] LABS: BUN/Creatinine Ratio 20 (6-26); Blood Urea Nitrogen 10 mg/dL (8-23); Calcium 8.8 mg/dL (8.6-10.3); Carbon Dioxide 24 mEq/L (23-29); Chloride 106 mEq/L (98-107); Glucose 120 mg/dL (70-105); Osmolality,Calculated 292 (280-300); Potassium 3.2 mEq/L (3.5-5.1); Sodium 141 mEq/L (136-145); eGFR For Non-African Americans > 60 (> 60)
[2018-10-03] MEDS: Insulin LISPRO 300 UNITS/3 ML VIAL SQ SCH ×3 (07:47→16:40)
[2018-10-03] MEDS: 0.9 % Sodium Chloride 1,000 ML IVC SCH ×3 (08:04→20:47)
[2018-10-03] MEDS: Pantoprazole 40 MG VIAL IVP SCH (08:04)
--- NOTE | 2018-10-03 08:17 | General Surgery Progress Note ---
<Graham Mancini - Last Filed: 10/03/18 17:51> Date of Encounter: 10/03/18 Time of Encounter: 07:30 - Assessment and Plan (1) Gastric mass Current Visit: Yes Status: Acute Patient is POD 5 for subtotal gastrectomy with Audrey-en-Y for gastric mass Passing flatus, no BMs On CLD with volume restriction of 300 ml per shift IVF hydration at 75 ml/hr Morphine and oxycodone for pain Zofran for nausea Protonix for GI prophylaxis Patient up out of bed to chair today Awaiting path results (2) Hyperglycemia Current Visit: Yes Status: Acute Glucose 120 On low sliding scale insulin (3) Hypokalemia Current Visit: Yes Status: Acute K 3.3 > 3.2 today Replaced with 40 meq KCL rider Continue to monitor Subjective Patient reports: no new complaints, feels better, pain is less, tolerating liquids well, flatus, no bowel movement Narrative: Patient doing well this morning. She is ambulating and passing more flatus. She has not had any BMs yet. She denies nausea, vomiting, abdominal pain, CP, SOB, fevers/chills. Objective Vital Signs - Last 8 Hours Temp Pulse Resp BP Pulse Ox 10/03/18 05:35 98.3 F 85 11 154/80 98 Intake and Output 10/02/18 10/03/18 10/03/18 23:59 07:59 15:59 Intake Total 1262 / 1262 1050 / 1050 Output Total 0 / 0 Balance 1262 / 1262 1050 / 1050 Intake: IV Fluids 1262 / 1262 1050 / 1050 0.9 % Sodium Chloride 1,000 ML 900 / 900 950 / 950 @ 75 mls/hr IVC .[id number] [facility] Rx #:[id number] Ofirmev 1,000 mg/100 ml 1,000 100 / 100 100 / 100 mg In 100 ml @ 400 mls/hr IVPB Q6HR [facility] Rx#:[id number] KCl 20 MEQ Xylocaine 2 ML In 262 / 262 Dextrose 5% 250 ML @ 131 mls/hr IVPB ONCE ONE Rx#:[id number] Oral 0 / 0 0 / 0 Output: Urine 0 / 0 Other: # Voids 1 4 Weight 79 kg Blood Glucose* 85 119 Patient Weight 10/03/18 23:59 Weight 79 kg - General physical appearance well developed, well nourished - Respiratory normal expansion, normal respiratory effort - Cardiovascular Cardiovascular exam: Present: RRR - Abdomen Abdomen: Present: bowel sounds present, soft, tender (appropriately tender, improved from yesterday) - Incision Incision: Present: clean and dry, intact - Integumentary no rash - Psychiatric oriented to time, oriented to person, oriented to place - Labs 10/03/18 06:20 10/03/18 06:20 Diabetes panel 10/03/18 Range/Units 06:20 Sodium 141 (136-145) mEq/L Potassium 3.2 L (3.5-5.1) mEq/L Chloride 106 (98-107) mEq/L Carbon Dioxide 24 (23-29) mEq/L BUN 10 (8-23) mg/dL Creatinine 0.50 L (0.60-1.20) mg/dL Glucose 120 H (70-105) mg/dL Calcium 8.8 (8.6-10.3) mg/dL Calcium panel 10/03/18 Range/Units 06:20 Calcium 8.8 (8.6-10.3) mg/dL Pituitary panel 10/03/18 Range/Units 06:20 Sodium 141 (136-145) mEq/L Potassium 3.2 L (3.5-5.1) mEq/L Chloride 106 (98-107) mEq/L Carbon Dioxide 24 (23-29) mEq/L BUN 10 (8-23) mg/dL Creatinine 0.50 L (0.60-1.20) mg/dL Glucose 120 H (70-105) mg/dL Calcium 8.8 (8.6-10.3) mg/dL Adrenal panel 10/03/18 Range/Units 06:20 Sodium 141 (136-145) mEq/L Potassium 3.2 L (3.5-5.1) mEq/L Chloride 106 (98-107) mEq/L Carbon Dioxide 24 (23-29) mEq/L BUN 10 (8-23) mg/dL Creatinine 0.50 L (0.60-1.20) mg/dL Glucose 120 H (70-105) mg/dL Calcium 8.8 (8.6-10.3) mg/dL Consult Discharge Plan - Plan Referrals: Jona Salinas MD [Partnered Physician] - 10/10/18 1:15 pm Isaac Rodriguez MD [Primary Care Provider] - <Jona Salinas - Last Filed: 10/04/18 17:22> Date of Encounter: 10/03/18 Objective Vital Signs - Last 8 Hours Temp Pulse Resp BP Pulse Ox 10/04/18 14:31 98.2 F 87 14 111/74 95 10/04/18 09:58 98.0 F 91 14 122/76 96 Intake and Output 10/04/18 10/04/18 10/04/18 07:59 15:59 23:59 Intake Total 200 / 200 950 / 950 Output Total 2049 0 / 0 Balance -1850 / -1850 950 / 950 Intake: IV Fluids 200 / 200 950 / 950 0.9 % Sodium Chloride 1,000 ML 950 / 950 @ 75 mls/hr IVC .[id number] [facility] Rx #:[id number] Ofirmev 1,000 mg/100 ml 1,000 200 / 200 mg In 100 ml @ 400 mls/hr IVPB Q6HR [facility] Rx#:[id number] Oral 0 / 0 Output: Urine 2049 0 / 0 Other: Stool Size Moderate Stool Consistency liquid # Bowel Movements 0 1 Weight 78.1 kg Blood Glucose* 125 151 Patient Weight 10/04/18 23:59 Weight 78.1 kg - Labs 10/04/18 06:37 10/04/18 06:37 Diabetes panel 10/04/18 Range/Units 06:37 Sodium 140 (136-145) mEq/L Potassium 3.5 (3.5-5.1) mEq/L Chloride 106 (98-107) mEq/L Carbon Dioxide 27 (23-29) mEq/L BUN 6 L (8-23) mg/dL Creatinine 0.51 L (0.60-1.20) mg/dL Glucose 130 H (70-105) mg/dL Calcium 9.1 (8.6-10.3) mg/dL Calcium panel 10/04/18 Range/Units 06:37 Calcium 9.1 (8.6-10.3) mg/dL Pituitary panel 10/04/18 Range/Units 06:37 Sodium 140 (136-145) mEq/L Potassium 3.5 (3.5-5.1) mEq/L Chloride 106 (98-107) mEq/L Carbon Dioxide 27 (23-29) mEq/L BUN 6 L (8-23) mg/dL Creatinine 0.51 L (0.60-1.20) mg/dL Glucose 130 H (70-105) mg/dL Calcium 9.1 (8.6-10.3) mg/dL Adrenal panel 10/04/18 Range/Units 06:37 Sodium 140 (136-145) mEq/L Potassium 3.5 (3.5-5.1) mEq/L Chloride 106 (98-107) mEq/L Carbon Dioxide 27 (23-29) mEq/L BUN 6 L (8-23) mg/dL Creatinine 0.51 L (0.60-1.20) mg/dL Glucose 130 H (70-105) mg/dL Calcium 9.1 (8.6-10.3) mg/dL - Attending Attestation I examined this patient and my medical decision-making was reviewed with the Resident Physician. I agree with the documented findings, disposition and treatment plan as described except to the extent set forth below. The patient is seen and evaluated on morning rounds with resident. She is doing quite well. We will maintain clear liquid diet today. Await pathology. Jona Salinas MD FACS
[2018-10-04] MEDS: Acetaminophen IV 1,000 MG/100 ML INFUS..BTL IVPB SCH ×3 (06:38→18:39)
[2018-10-04] MEDS: *HR* Heparin 5,000 UNIT/ML VIAL SQ SCH ×2 (06:39→18:18)
[2018-10-04 07:08] LABS: Hematocrit 31.4 % (35.3-44.9); Hemoglobin 10.3 g/dL (11.5-15.4); Mean Corpuscular HGB Conc 32.8 g/dL (31.6-35.5); Mean Corpuscular Hemoglobin 28.8 pg (28.0-33.3); Mean Corpuscular Volume 87.7 fL (83.0-100.0); Mean Platelet Volume 9.4 fL (9.4-12.4); Platelet Count 246 K/mcL (140-400); Red Blood Count 3.58 M/mcL (3.82-4.97); Red Cell Distribution Width 12.7 % (11.5-14.5)
[2018-10-04 07:25] LABS: BUN/Creatinine Ratio 12 (6-26); Blood Urea Nitrogen 6 mg/dL (8-23); Calcium 9.1 mg/dL (8.6-10.3); Carbon Dioxide 27 mEq/L (23-29); Chloride 106 mEq/L (98-107); Glucose 130 mg/dL (70-105); Osmolality,Calculated 289 (280-300); Potassium 3.5 mEq/L (3.5-5.1); Sodium 140 mEq/L (136-145); eGFR For Non-African Americans > 60 (> 60)
[2018-10-04] MEDS: Insulin LISPRO 300 UNITS/3 ML VIAL SQ SCH ×3 (08:58→18:19)
[2018-10-04] MEDS: Pantoprazole 40 MG VIAL IVP SCH (09:04)
[2018-10-04] MEDS: 0.9 % Sodium Chloride 1,000 ML IVC SCH (09:04)
--- NOTE | 2018-10-04 11:03 | General Surgery Progress Note ---
<LiveGraham S - Last Filed: 10/04/18 16:56> Date of Encounter: 10/04/18 Time of Encounter: 07:20 - Assessment and Plan (1) Gastric mass Current Visit: Yes Status: Acute Patient is POD 6 for subtotal gastrectomy with Audrey-en-Y for gastric mass Passing BMs Advanced to full liquid diet today Morphine and oxycodone for pain Zofran for nausea Protonix for GI prophylaxis Ambulate Awaiting path results (2) Hyperglycemia Current Visit: Yes Status: Acute Glucose 130 On low sliding scale insulin (3) Hypokalemia Current Visit: Yes Status: Acute K 3.2 > 3.5 today Continue to monitor Subjective Patient reports: no new complaints, feels better, pain is less, tolerating liquids well, flatus, bowel movement Narrative: Patient doing well this morning. She is having BMs. She denies nausea, vomiting, CP, SOB, fevers/chills. She is tolerating clear liquids well. Objective Vital Signs - Last 8 Hours Temp Pulse Resp BP Pulse Ox 10/04/18 09:58 98.0 F 91 14 122/76 96 10/04/18 07:42 97.7 F 79 15 135/79 97 10/04/18 04:23 98.3 F 70 14 158/84 94 Intake and Output 10/03/18 10/04/18 10/04/18 23:59 07:59 15:59 Intake Total 2250 / 2250 100 / 100 950 / 950 Output Total 850 / 850 2049 0 / 0 Balance 1400 / 1400 -1949 / 950 / 950 Intake: IV Fluids 2250 / 2250 100 / 100 950 / 950 0.9 % Sodium Chloride 1,000 ML 1949 / 1949 950 / 950 @ 75 mls/hr IVC .[id number] [facility] Rx #:[id number] Ofirmev 1,000 mg/100 ml 1,000 200 / 200 100 / 100 mg In 100 ml @ 400 mls/hr IVPB Q6HR [facility] Rx#:[id number] Potassium Chloride 10 mEq/100mL 100 / 100 10 meq In 100 ml @ 100 mls/hr IVPB Q1H [facility] Rx#:[id number] Oral 0 / 0 Output: Urine 850 / 850 2049 0 / 0 Other: Stool Size Moderate Stool Consistency liquid # Bowel Movements 0 0 1 Weight 78.1 kg Blood Glucose* 149 125 Patient Weight 10/04/18 23:59 Weight 78.1 kg - General physical appearance well developed, well nourished - Respiratory normal expansion, normal respiratory effort - Cardiovascular Cardiovascular exam: Present: RRR - Abdomen Abdomen: Present: bowel sounds present, soft, non tender - Incision Incision: Present: clean and dry, intact - Musculoskeletal normal gait, normal posture - Psychiatric oriented to time, oriented to person, oriented to place - Labs 10/04/18 06:37 10/04/18 06:37 Diabetes panel 10/04/18 Range/Units 06:37 Sodium 140 (136-145) mEq/L Potassium 3.5 (3.5-5.1) mEq/L Chloride 106 (98-107) mEq/L Carbon Dioxide 27 (23-29) mEq/L BUN 6 L (8-23) mg/dL Creatinine 0.51 L (0.60-1.20) mg/dL Glucose 130 H (70-105) mg/dL Calcium 9.1 (8.6-10.3) mg/dL Calcium panel 10/04/18 Range/Units 06:37 Calcium 9.1 (8.6-10.3) mg/dL Pituitary panel 10/04/18 Range/Units 06:37 Sodium 140 (136-145) mEq/L Potassium 3.5 (3.5-5.1) mEq/L Chloride 106 (98-107) mEq/L Carbon Dioxide 27 (23-29) mEq/L BUN 6 L (8-23) mg/dL Creatinine 0.51 L (0.60-1.20) mg/dL Glucose 130 H (70-105) mg/dL Calcium 9.1 (8.6-10.3) mg/dL Adrenal panel 10/04/18 Range/Units 06:37 Sodium 140 (136-145) mEq/L Potassium 3.5 (3.5-5.1) mEq/L Chloride 106 (98-107) mEq/L Carbon Dioxide 27 (23-29) mEq/L BUN 6 L (8-23) mg/dL Creatinine 0.51 L (0.60-1.20) mg/dL Glucose 130 H (70-105) mg/dL Calcium 9.1 (8.6-10.3) mg/dL Consult Discharge Plan - Plan Referrals: Jona Salinas MD [Partnered Physician] - 10/10/18 1:15 pm Isaac Rodriguez MD [Primary Care Provider] - <Jona Salinas - Last Filed: 10/04/18 17:14> Date of Encounter: 10/04/18 Objective Vital Signs - Last 8 Hours Temp Pulse Resp BP Pulse Ox 10/04/18 14:31 98.2 F 87 14 111/74 95 10/04/18 09:58 98.0 F 91 14 122/76 96 Intake and Output 10/04/18 10/04/18 10/04/18 07:59 15:59 23:59 Intake Total 200 / 200 950 / 950 Output Total 2049 0 / 0 Balance -1850 / -1850 950 / 950 Intake: IV Fluids 200 / 200 950 / 950 0.9 % Sodium Chloride 1,000 ML 950 / 950 @ 75 mls/hr IVC .[id number] [facility] Rx #:[id number] Ofirmev 1,000 mg/100 ml 1,000 200 / 200 mg In 100 ml @ 400 mls/hr IVPB Q6HR [facility] Rx#:[id number] Oral 0 / 0 Output: Urine 2049 0 / 0 Other: Stool Size Moderate Stool Consistency liquid # Bowel Movements 0 1 Weight 78.1 kg Blood Glucose* 125 151 Patient Weight 10/04/18 23:59 Weight 78.1 kg - Labs 10/04/18 06:37 10/04/18 06:37 Diabetes panel 10/04/18 Range/Units 06:37 Sodium 140 (136-145) mEq/L Potassium 3.5 (3.5-5.1) mEq/L Chloride 106 (98-107) mEq/L Carbon Dioxide 27 (23-29) mEq/L BUN 6 L (8-23) mg/dL Creatinine 0.51 L (0.60-1.20) mg/dL Glucose 130 H (70-105) mg/dL Calcium 9.1 (8.6-10.3) mg/dL Calcium panel 10/04/18 Range/Units 06:37 Calcium 9.1 (8.6-10.3) mg/dL Pituitary panel 10/04/18 Range/Units 06:37 Sodium 140 (136-145) mEq/L Potassium 3.5 (3.5-5.1) mEq/L Chloride 106 (98-107) mEq/L Carbon Dioxide 27 (23-29) mEq/L BUN 6 L (8-23) mg/dL Creatinine 0.51 L (0.60-1.20) mg/dL Glucose 130 H (70-105) mg/dL Calcium 9.1 (8.6-10.3) mg/dL Adrenal panel 10/04/18 Range/Units 06:37 Sodium 140 (136-145) mEq/L Potassium 3.5 (3.5-5.1) mEq/L Chloride 106 (98-107) mEq/L Carbon Dioxide 27 (23-29) mEq/L BUN 6 L (8-23) mg/dL Creatinine 0.51 L (0.60-1.20) mg/dL Glucose 130 H (70-105) mg/dL Calcium 9.1 (8.6-10.3) mg/dL - Attending Attestation I examined this patient and my medical decision-making was reviewed with the Resident Physician. I agree with the documented findings, disposition and treatment plan as described except to the extent set forth below. The patient is seen and evaluated on morning rounds with resident. She is tolerating clear liquids. She be advanced to full liquids. I did see her later in the morning. The likely diagnosis is gastric schwannoma Jona Salinas MD FACS
[2018-10-05] MEDS: Acetaminophen IV 1,000 MG/100 ML INFUS..BTL IVPB SCH ×2 (01:00→05:42)
[2018-10-05] MEDS: *HR* Heparin 5,000 UNIT/ML VIAL SQ SCH (05:42)
[2018-10-05 08:02] VITALS: BP 139/78
--- NOTE | 2018-10-05 08:19 | Discharge Summary ---
<Marilynn Bhandari L - Last Filed: 10/05/18 08:17> Orders not resulted at time of discharge: Pending orders 09/27/18 08:11 Red Blood Cells [BBK] Routine 09/28/18 12:37 US anesthesia pain block [US] Routine 09/28/18 16:43 Surgical Pathology [PTH] Routine Date of Encounter: 10/05/18 Time of Encounter: 07:00 - Discharge Diagnosis (1) Gastric mass Priority: Primary Status: Acute (2) Hyperglycemia Priority: Secondary Status: Acute (3) Hypokalemia Priority: Secondary Status: Acute General Surgery Exam Initial Vital Signs Temp Pulse Resp BP Pulse Ox 97.8 F 93 18 140/81 93 09/28/18 11:24 09/28/18 11:24 09/28/18 11:24 09/28/18 11:24 09/28/18 11:24 Vital Signs Temp Pulse Resp BP Pulse Ox 10/05/18 07:56 98.3 F 67 14 139/78 96 10/05/18 03:39 98.6 F 66 15 164/84 97 10/04/18 19:40 98.1 F 83 15 139/77 95 10/04/18 14:31 98.2 F 87 14 111/74 95 10/04/18 09:58 98.0 F 91 14 122/76 96 Intake and Output 10/04/18 10/05/18 10/05/18 23:59 07:59 15:59 Intake Total 460 / 460 200 / 200 Balance 460 / 460 200 / 200 Intake: IV Fluids 100 / 100 200 / 200 Ofirmev 1,000 mg/100 ml 1,000 100 / 100 200 / 200 mg In 100 ml @ 400 mls/hr IVPB Q6HR [facility] Rx#:[id number] Oral 360 / 360 0 / 0 Other: # Voids 1 # Bowel Movements 0 Weight 77.8 kg Blood Glucose* 139 Patient Weight 10/05/18 23:59 Weight 77.8 kg VITAL SIGNS: Reviewed. See [facility] GENERAL: In no apparent distress. HEENT: Normocephalic, atraumatic, pupils are equal and reactive, extraocular motions intact, oropharynx is pink and moist, there is no neck adenopathy or JVD noted. CHEST/RESPIRATORY: The thorax is free from signs of trauma. Lung sounds: clear to auscultation, normal respiratory effort CARDIAC: Regular rate and rhythm. Normal S1 and S2, without murmurs, gallops, or rubs. VASCULAR: No Edema. 2+ peripheral pulses. ABDOMEN: soft, expected postoperative tenderness, active bowel sounds INCISION: Surgical incision is clean, dry, and intact. There are no signs of cellulitis or infection noted. MUSCULOSKELETAL: Good range of motion of all major joints. Extremities without clubbing, cyanosis or edema. NEUROLOGIC EXAM: Alert and oriented x 3. Speech normal. Follows commands. PSYCHIATRIC: Mood normal. SKIN: No rash or lesions. - Hospital Course Hospital course: Ms. Voss is a 68 year old female who presented on 09/28/2018 for an elective subtotal gastrectomy with Audrey-en-Y reconstruction by Dr. Salinas for epigastric mass. Her final pathology remains pending. Her hospital course has been unremarkable. She is ambulating and voiding without difficulty, tolerating a diet without nausea or vomiting, vital signs are stable, and she is afebrile. We will begin discharge planning to home with a follow-up in the office in approximately 1-2 weeks. - Time Spent with Patient Total time spent providing and/or coordinating discharge services: - Discharge Medications Prescriptions: RX: OxyCODONE/APAP 5/325 [Percocet 5/325 MG] 1 each PO Q6HR PRN 7 Days #28 tablet PRN Reason: Pain Docusate Sodium [Colace] 100 mg PO BID PRN #30 capsule PRN Reason: Constipation Home Medications: RX: Atorvastatin Calcium [Lipitor] 80 mg PO HS 08/23/18 [History] RX: Gabapentin [Neurontin] 400 mg PO HS 08/23/18 [History] RX: GlipiZIDE XL (24 HR) [Glucotrol XL] 5 mg PO DAILY 08/23/18 [History] RX: Loratadine [Allergy Relief] 10 mg PO DAILY 08/23/18 [History] RX: Metformin HCl [Glucophage Xr] 500 mg PO DAILY 08/23/18 [History] RX: Omeprazole [PriLOSEC] 40 mg PO DAILY 08/23/18 [History] RX: Ranitidine HCl [Zantac] 300 mg PO DAILY 08/23/18 [History] RX: Venlafaxine XR (24 HR) [Effexor Xr] 37.5 mg PO DAILY 08/23/18 [History] Docusate Sodium [Colace] 100 mg PO BID PRN #30 capsule 10/05/18 [Rx] RX: OxyCODONE/APAP 5/325 [Percocet 5/325 MG] 1 each PO Q6HR PRN 7 Days #28 tablet 10/05/18 [Rx] Allergies/Adverse Reactions: Allergy/AdvReac Type Severity Reaction Status Date / Time naproxen Allergy See Verified 09/28/18 13:44 Comments morphine AdvReac Nausea Verified 09/28/18 13:44 NSAIDS (Non-Steroidal AdvReac See Verified 09/28/18 13:44 Anti-Inflamma Comments Procaine [From Novocain] AdvReac See Verified 09/28/18 13:44 Comments Date of admission: 09/28/18 19:23 Primary care physician: Isaac Rodriguez MD Consults: 09/29/18 00:52 Consult to Nutrition [CONS] Routine Comment: Gastric mass removed, prevent further weight loss Consulting Provider: NUTRITION Reason for Dietary Consult: Other Consult to Pastoral Services [CONS] Routine Comment: 10/04/18 12:03 consult to it security engineer [Consult to Nutrition] [CONS] Routine Comment: POST GASTRIC SURGERY DIET Consulting Provider: NUTRITION Reason for Dietary Consult: Other Discharging clinician: Jona Salinas Anticipated date of discharge: 10/05/18 Labs on day of discharge: Labs from last 24 hours 10/04/18 10/04/18 10/04/18 21:18 16:04 07:45 POC Glucose 139 H 151 H 125 H - Impressions ITS Impressions Biopsy CT 09/21/18 00:00 IMPRESSION: Successful CT guided core biopsy of the abdominal mass. D/ / 09/21/2018 12:56:06 Rosa Maria Cueva MD / todd Interpreting Provider: Rosa Maria Cueva MD X-Ray 09/29/18 07:33 IMPRESSION: Enteric tube and side port project over the proximal stomach. D/ / Cyndee Gates MD / Cyndee Gates MD Interpreting Provider: Cyndee Gates MD - Patient Status Disposition: Home, Self-Care Condition: Good Functional capacity at discharge: independent ambulation Overall status at discharge: patient is progressing back to baseline - Discharge Instructions Instructions: Gastrectomy (DC), Gastric Bypass Diet (DC) Follow Up With: Jona Salinas MD [Partnered Physician] - 10/10/18 1:15 pm Additional Instructions: General Surgical Discharge Instructions 1. No pushing, pulling, or lifting greater than 15 lbs for 4 weeks. 2. You may shower beginning today, but no tub baths, soaking, or swimming for 2 weeks. 3. You may resume driving when you are off narcotics and are safe to react in a car. 4. Take the as needed Percocet. Take narcotics as directed. Do not take more narcotics then directed and do not share your narcotics with any other person. Do not drink alcohol while on narcotics. 5. Take stool softeners (Colace) or a water based laxative (Miralax) while taking narcotics. You may hold for loose stools. 6. Report any fevers greater than 100.5F, increase abdominal discomfort, drainage that looks like pus, increased redness or pain at the surgical site, or any vomiting. 7. Report any pain in the calves, shortness of breath, or rapid heartbeat. 8. Follow-up in the office as directed. 9. If you were prescribed antibiotics, do not stop them without talking to your provider. 10. Follow the gastrectomy diet recommendations. Drink three protein shakes daily (carnation instant breakfast, Ensure, Boost, or equivalent) - Diet and Activity Activity: increase activity as tolerated Diet: other (Gastrectomy diet) <Jona Salinas - Last Filed: 10/06/18 12:38> Orders not resulted at time of discharge: Pending orders 09/28/18 12:37 US anesthesia pain block [US] Routine Date of Encounter: 10/05/18 General Surgery Exam Initial Vital Signs Temp Pulse Resp BP Pulse Ox 97.8 F 93 18 140/81 93 09/28/18 11:24 09/28/18 11:24 09/28/18 11:24 09/28/18 11:24 09/28/18 11:24 - Hospital Course Hospital course: Ms. Voss is a 68 year old female - Time Spent with Patient Total time spent providing and/or coordinating discharge services: Date of admission: 09/28/18 19:23 Primary care physician: Isaac Rodriguez MD Consults: 09/29/18 00:52 Consult to Nutrition [CONS] Routine Comment: Gastric mass removed, prevent further weight loss Consulting Provider: NUTRITION Reason for Dietary Consult: Other Consult to Pastoral Services [CONS] Routine Comment: 10/04/18 12:03 consult to it security engineer [Consult to Nutrition] [CONS] Routine Comment: POST GASTRIC SURGERY DIET Consulting Provider: NUTRITION Reason for Dietary Consult: Other Labs on day of discharge: Labs from last 24 hours 09/27/18 08:11 Crossmatch See Detail - Impressions ITS Impressions Biopsy CT 09/21/18 00:00 IMPRESSION: Successful CT guided core biopsy of the abdominal mass. D/ / 09/21/2018 12:56:06 Rosa Maria Cueva MD / todd Interpreting Provider: Rosa Maria Cueva MD X-Ray 09/29/18 07:33 IMPRESSION: Enteric tube and side port project over the proximal stomach. D/ / Cyndee Gates MD / Cyndee Gates MD Interpreting Provider: Cyndee Gates MD - Attending Attestation I have personally performed a face to face evaluation on this patient. I have reviewed and agree with the care plan. History and Exam by me shows: The patient is seen and evaluated with the clinical nurse practitioner. The diagnosis is gastric schwannoma. She is doing quite well after surgery. She will be discharged on post gastrectomy diet. Jona Salinas MD FACS
[2018-10-05] MEDS: Insulin LISPRO 300 UNITS/3 ML VIAL SQ SCH (09:24)
[2018-10-05] MEDS: Pantoprazole 40 MG VIAL IVP SCH (09:24)
== END 2018-10-05 13:08 | disposition home or self-care (01) | DRG 983 ==
LOC: SAMDAY 10:52 → 3ANU 19:23
PROVIDERS: ADMIT Surgery; ATTEND Surgery